=== PATIENT | male | born 1950 | race Caucasian/White ===

== ENCOUNTER 2020-04-05 09:10 | Outpatient (NON) | payer OTHER, SELFPAY ==
[2020-04-05 13:56] LABS: Influenza Control Positive
== END 2020-04-05 09:11 ==
LOC: ANHCOVIDDT 09:12
PROVIDERS: PCP Family Medicine; Visit Provider Nurse Practitioner Family
DX: R50.9 Fever, unspecified (principal)
CPT/HCPCS: 87804

== ENCOUNTER 2024-06-15 09:54 | Emergency (ER) | payer OTHER, SELFPAY ==
--- NOTE | 2024-06-15 10:06 | ED_ITS ---
HPI - URI/Sore Throat General Chief Complaint: Upper Respiratory Infection Stated Complaint: COUGH Time Seen by Provider: 06/15/24 10:06 Source: patient Mode of arrival: ambulatory Limitations: no limitations History of Present Illness HPI Narrative: 73-year-old male presented for complaint of cough, body aches and nasal drainage. Endorses occasional wheezing, symptoms are worse at night. Onset 4 days. He denies shortness of breath, fatigue, fever, nausea or vomiting or diarrhea. 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 Taking Robitussin. Related Data Home Medications ?Medication ?Instructions ?Recorded ?Confirmed ?Last Taken ?Type acetaminophen 500 mg tablet 1,000 mg PO Q6H PRN 11/24/22 03/31/24 Unknown History (Tylenol Extra Strength) glucosamine 750 [id number] 2 tablet PO BID 11/24/22 03/31/24 Unknown History no1 644 mg-C 30 mg-stanley 1 mg tablet (Osteo Bi-Flex Triple Strength) multivitamin 1 tablet PO DAILY 11/24/22 03/31/24 Unknown History Allergies Allergy/AdvReac Type Severity Reaction Status Date / Time Cephalosporins Allergy Mild Unknown Verified 06/15/24 10:06 cefadroxil Allergy Unknown Unknown Verified 06/15/24 10:06 morphine AdvReac Mild Nausea Verified 06/15/24 10:06 Review of Systems Review of Systems: CONSTITUTIONAL: Reports body aches, denies fever, chills, or sweats. EYES: Denies visual changes, redness, or discharge. ENT: Reports rhinorrhea, denies sore throat, or otalgia. CARDIOVASCULAR: Denies chest pain, palpitations, or edema. RESPIRATORY: Reports cough, wheezing. GASTROINTESTINAL: Denies abdominal pain, nausea, vomiting, or diarrhea. MUSCULOSKELETAL: Denies back pain, joint pain, or myalgia. NEUROLOGIC: Denies headache, numbness, tingling, or weakness. All systems reviewed & are unremarkable except as noted in HPI and below PMFSH Past Medical History Medical History (Updated 06/15/24 @ 10:35 by Allison Price APRN) Plantar fasciitis of right foot COVID-19 Essential (primary) hypertension Hiatal hernia BMI greater than 40 Surgical History Surgical History (Updated 06/15/24 @ 10:35 by Allison Price APRN) History of lobectomy of lung History of left hip replacement (~2019) History of endoscopy Family History Family History Father Family history of lung cancer Mother Family history of malignant neoplasm of breast in first degree relative Breast cancer Sibling Malignant neoplasm of prostate Multiple sclerosis Social History Social History Smoking status: Former smoker (Quit in 1975) Tobacco type: cigarettes Second hand tobacco smoke exposure: No Alcohol intake: never Substance use: never Substance use type: does not use Living arrangements: with family Occupation/Education: occupation Additional occupation/education comments: Sales Gender identity (if verbalized by the patient): Male Comments At time of signature, I have reviewed and agree with nursing past medical, surgical, social and family history unless otherwise noted. Please see nursing chart for further information. There is no relevant family history pertinent to the presenting complaint Exam Narrative: GENERAL: Well-appearing, in no acute distress. EYES: EOMI. No redness or drainage. Conjunctivae normal. ENT: Mucous membranes pink and moist. No rhinorrhea. TMs normal bilaterally. Throat normal. Uvula midline. NECK: Normal AROM. Supple. CHEST: No respiratory distress. Faint expiratory Wheezing to right chapman. Left lower lobe absent hx lobectomy. HEART: Regular rate and rhythm. No murmur appreciated. SKIN: Warm, dry, no rash. Capillary refill normal. Normal skin turgor. NEURO: Alert and oriented x3. Gait steady. PSYCH: Normal affect. Course Course Emergency Course: Patient is aware of diagnosis, understands and agrees to treatment plan. Anticipatory guidance given. Patient agrees to follow-up as directed and is aware of reasons to seek care at the emergency department. Portions of this record may have been created with voice recognition software Level of Care: Express Care Visit Vital Signs Vital signs: Vital Signs Temperature 98.2 F 06/15/24 10:07 Pulse Rate 76 06/15/24 10:07 Respiratory Rate 16 06/15/24 10:07 Blood Pressure 125/74 06/15/24 10:07 Pulse Oximetry 98 06/15/24 10:07 Temperature 98.2 F 06/15/24 10:07 Pulse Rate 76 06/15/24 10:07 Respiratory Rate 16 06/15/24 10:07 Blood Pressure 125/74 06/15/24 10:07 Pulse Oximetry 98 06/15/24 10:07 MDM - URI/Sore Throat MDM Narrative Medical decision making narrative: POS flu; reviewed with patient. Rx steroid, albuterol inhaler. Advised supportive measures and signs/symptoms to go to the ER. Pt is appropriate for outpt treatment and f/u. Differential Diagnosis Differential diagnosis: Likely upper respiratory infection, sinusitis, viral infection, bronchitis and influenza Lab Data Labs: Lab Results 06/15/24 Range/Units 10:24 POC Influenza A Ag Negative (Negative) POC Influenza B Ag Positive (Negative) POC SARS CoV-2 Ag Negative (Negative) Discharge Plan Discharge Clinical Impression: Influenza Patient Disposition: Home, Self-Care Condition: Stable Instructions: Influenza (ED) Additional Instructions: Influenza positive You should avoid crowds until you are fever free for 24 hours without the use of fever reducing medications, or the symptoms are improved Rest. Drink plenty of fluids. Tylenol 1000mg every 8 hours as needed for pain/fever Flonase spray and Zyrtec (or Claritin/Shefali) for sinus pressure/congestion over the counter Cough syrup may cause drowsiness; avoid driving or take it at night time. Coricidin HBP if you have high blood pressure. Take the steroid as directed Albuterol inhaler as needed every 6-8 hours for shortness of breath/wheezing Follow up with your primary care provider as needed Go to the ER for worsening symptoms or concerns Patient Language: Brazilian Prescriptions: New benzonatate 200 mg capsule 200 mg PO TID PRN (Reason: cough) Qty: 20 0RF methylprednisolone [Medrol (Asael)] 4 mg tablets,dose pack See Rx Instructions .ROUTE .COMPLEX Qty: 21 0RF Rx Instructions: orally per package directions albuterol sulfate 90 mcg/actuation HFA aerosol inhaler 2 inh inhalation QID PRN (Reason: shortness of breath or wheezing) Qty: 8.5 0RF No Action multivitamin Tablet 1 tablet PO DAILY Osteo Bi-Flex Triple Strength 750 mg-644 mg- 30 mg-1 mg tablet 2 tablet PO BID acetaminophen [Tylenol Extra Strength] 500 mg tablet 1,000 mg PO Q6H PRN losartan 50 mg tablet 50 mg PO DAILY Qty: 90 3RF Follow-up/Referrals: Dawson Hong MD [Primary Care Provider] -
[2024-06-15 10:07] VITALS: BP 125/74; PULSE 76; RESP 16; TEMP 36.8; O2SAT 98
[2024-06-15 10:25] LABS: EDCOVIDSCREEN Negative (Negative); EDINFLUASCREEN Negative (Negative); EDINFLUBSCREEN Positive (Negative)
== END 2024-06-15 10:42 | disposition home or self-care (01) ==
PROVIDERS: Emergency Provider Nurse Practitioner Family; PCP Family Medicine
DX: J10.1 Influenza due to other identified influenza virus with other respiratory manifestations (principal); Z20.822 Contact with and (suspected) exposure to COVID-19; Z87.891 Personal history of nicotine dependence; I10 Essential (primary) hypertension; Z86.16 Personal history of COVID-19; Z85.821 Personal history of Merkel cell carcinoma; Z90.2 Acquired absence of lung [part of]; Z96.642 Presence of left artificial hip joint
CPT/HCPCS: 87426; 87804; 99213; G0463